=== PATIENT | male | born 1960 | race Asian ===

== ENCOUNTER → 2021-02-15 10:10 | Outpatient (BNVA) | payer OTHER, SELFPAY | PROVIDERS: Visit Provider Internal Medicine | DX: T23.65 Corrosion of second degree of palm (principal); T53 Toxic effect of halogen derivatives of aliphatic and aromatic hydrocarbons; Z23 Encounter for immunization | CPT/HCPCS: 90715; 99203 ==

== ENCOUNTER → 2021-02-18 14:03 | Outpatient (BNVA) | payer OTHER, SELFPAY | PROVIDERS: Visit Provider Physician Assistant Medical | DX: T23.401D Corrosion of unspecified degree of right hand, unspecified site, subsequent encounter (principal) | CPT/HCPCS: 99213 ==

== ENCOUNTER → 2021-02-23 14:26 | Outpatient (BNVA) | payer OTHER, SELFPAY | PROVIDERS: Visit Provider Physician Assistant Medical | DX: T23.6 Corrosion of second degree of wrist and hand (principal); L03.113 Cellulitis of right upper limb | CPT/HCPCS: 16020; 99213 ==

== ENCOUNTER → 2021-03-02 14:37 | Outpatient (BNVA) | payer OTHER, SELFPAY | PROVIDERS: Visit Provider Physician Assistant Medical | DX: T23.001D Burn of unspecified degree of right hand, unspecified site, subsequent encounter (principal); L03.113 Cellulitis of right upper limb | CPT/HCPCS: 99213 ==

== ENCOUNTER → 2021-04-12 13:02 | Outpatient (BNVA) | payer OTHER, SELFPAY | PROVIDERS: Visit Provider Physician Assistant Medical | DX: Z77.098 Contact with and (suspected) exposure to other hazardous, chiefly nonmedicinal, chemicals (principal) | CPT/HCPCS: 16020; 99213 ==

== ENCOUNTER → 2021-04-15 14:41 | Outpatient (BNVA) | payer OTHER, SELFPAY | PROVIDERS: Visit Provider Physician Assistant | DX: Z77.098 Contact with and (suspected) exposure to other hazardous, chiefly nonmedicinal, chemicals (principal) | CPT/HCPCS: 99213 ==

== ENCOUNTER → 2021-04-21 14:28 | Outpatient (BNVA) | payer OTHER, SELFPAY | PROVIDERS: Visit Provider Physician Assistant | DX: Z77.098 Contact with and (suspected) exposure to other hazardous, chiefly nonmedicinal, chemicals (principal) | CPT/HCPCS: 99213 ==